=== PATIENT | male | born 1975 | race Caucasian/White ===

== ENCOUNTER 2021-07-10 10:10 | Emergency (ER) | payer OTHER ==
[~2021-07-10] VITALS: Ht 177.8 cm; Wt 92.5 kg
--- NOTE | 2021-07-10 16:43 | EKG ---
[facility] [address] [place], [place] [address] Signed Sinus bradycardia T wave abnormality, consider lateral ischemia Abnormal ECG No previous ECGs available Confirmed by JAGRUTI MORELAND MD ([id number]) on 07/10/2021 4:43:05 PM Electronically Signed By: JAGRUTI MORELAND MD 07/10/21 1643 PATIENT NAME: DAVID CARPENTER Electrocardiogram DATE OF : 71 PHYSICIAN: JAGRUTI MORELAND MD REPORT #: [id number] REPORT IS CONFIDENTIAL AND NOT TO BE RELEASED WITHOUT AUTHORIZATION
== END 2021-07-10 11:18 | disposition home or self-care (01) ==
LOC: ED 10:10
DX: K21.9 Gastro-esophageal reflux disease without esophagitis (principal)
CPT/HCPCS: 71045; 80053; 83735; 84484; 85025; 93005; 93010; 99285-25; U0003

== ENCOUNTER 2025-01-20 09:48 | Emergency (ER) | payer OTHER ==
[~2025-01-20] VITALS: Ht 177.8 cm; Wt 91.6 kg
[2025-01-20] MEDS ORDERED: hydrALAZINE HCL 20 MG/ML VIAL IV ONE (10:30)
[2025-01-20] MEDS ORDERED: hydrALAZINE HCL 10 MG TABLET PO ONE (10:45)
[2025-01-20 10:49] LABS: BASOPHILS 0.9 % (0-2); EOSINOPHILS 1.8 % (0-6); HEMOGLOBIN 15.6 g/dL (12.0-18.0); MCH 31.1 (27-36); MCHC 34.6 g/dl (30-36); MCV 89.9 fl (81-99); MONOCYTES 4.4 % (0-12); NEUTROPHILS 81.9 % (39-80); PLATELET COUNT 395 K/uL (140-440); RBC 5.01 M/ul (4.3-5.7); RDW 13.5 (10.5-15.0)
[2025-01-20 11:13] LABS: ALBUMIN 3.6 g/dL (3.4-5.0); ALBUMIN/GLOBULIN RATIO 0.78 (1.1-2.4); ANION GAP 12.9 (7-21); BILIRUBIN, TOTAL 0.3 mg/dL (0.2-1.0); BUN/CREATININE RATIO 14.41 (6.0-28.6); CREATININE, SERUM 1.11 mg/dL (0.70-1.30); POTASSIUM 3.9 mmol/L (3.5-5.1); PROTEIN, TOTAL 8.2 g/dL (6.4-8.2)
[2025-01-20] MEDS ORDERED: lisinopriL 20 MG TAB PO ONE (16:45)
[2025-01-20] MEDS ORDERED: LISINOPRIL10 MG PO (16:47)
[2025-01-20 17:06] LABS: CHOLESTEROL/HDL RATIO 3.8
[2025-01-20] MEDS ORDERED: lisinopriL 10 MG TAB PO ONE (17:45)
[2025-01-20 18:17] VITALS: BP 160/112
--- NOTE | 2025-01-22 12:55 | EKG ---
[facility] [address] [facility] [place], [place] [address] Signed Normal sinus rhythm Left axis deviation Abnormal ECG When compared with ECG of 10-JUL-2021 10:10, T wave inversion no longer evident in Lateral leads Confirmed by Lillian Raman DO ([id number]) on 01/22/2025 12:54:40 PM Electronically Signed By: LILLIAN RAMAN DO 01/22/25 1255 PATIENT NAME: DAVID CARPENTER Electrocardiogram DATE OF : 71 PHYSICIAN: LILLIAN RAMAN DO REPORT #: [id number] REPORT IS CONFIDENTIAL AND NOT TO BE RELEASED WITHOUT AUTHORIZATION
== END 2025-01-20 18:18 | disposition home or self-care (01) ==
LOC: ED 09:48
PROVIDERS: Emergency Medicine
DX: I10 Essential (primary) hypertension (principal); F15.10 Other stimulant abuse, uncomplicated; I69.328 Other speech and language deficits following cerebral infarction; K90.0 Celiac disease; E78.00 Pure hypercholesterolemia, unspecified; F17.200 Nicotine dependence, unspecified, uncomplicated; Z79.899 Other long term (current) drug therapy
CPT/HCPCS: 36415; 70450; 70553; 71045; 80053; 80061; 83036; 83880; 84484; 85025; 93005; 93010; 99284-25; A9577

== ENCOUNTER 2025-01-31 22:02 | Emergency (ER) | payer OTHER ==
[~2025-01-31] VITALS: Ht 177.8 cm; Wt 90.0 kg
[~2025-01-31 22:02] MED LIST: LISINOPRIL10 MG PO
--- OUTSIDE RECORDS SUMMARY | 2025-01-31 22:09 | XMS ---
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/Center: [facility] <UNAVAIL> PHONE: [phone] BURKE OLMEDO [facility] Current PHONE: Unknown Wes has no Care Guidelines for this patient. [place] VISIT COUNT (12 MO.) 2 [facility]MAINE Tejeda TOTAL 2 NOTE: Visits indicate total known visits. ED/UCC VISIT TRACKING (12 MO.) 01/31/2025 22:02 [facility] [place] TYPE: Emergency COMPLAINT: - HIGH BP 01/20/2025 09:[address] 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
[2025-01-31 23:54] VITALS: BP 154/99
--- NOTE | 2025-02-01 21:12 | EKG ---
[facility] [address] [facility] [place] [address] Signed Normal sinus rhythm Normal ECG When compared with ECG of 20-JAN-2025 11:40, No significant change was found Confirmed by Nitza Holden MD () on 02/01/2025 9:12:12 PM Electronically Signed By: NITZA HOLDEN MD 02/01/252111 PATIENT NAME: DAVID CARPENTER Electrocardiogram DATE OF : 71 PHYSICIAN: NITZA HOLDEN MD REPORT #: [id number] REPORT IS CONFIDENTIAL AND NOT TO BE RELEASED WITHOUT AUTHORIZATION
== END 2025-01-31 23:56 | disposition other institution, planned readmission (95) ==
LOC: ED 22:02
DX: Z02.89 Encounter for other administrative examinations (principal); I10 Essential (primary) hypertension; F17.200 Nicotine dependence, unspecified, uncomplicated; Z79.899 Other long term (current) drug therapy
CPT/HCPCS: 93005; 93010; 99283

== ENCOUNTER 2025-02-27 16:53 | Emergency (ER) | payer OTHER ==
[~2025-02-27] VITALS: Ht 177.8 cm; Wt 89.0 kg
--- OUTSIDE RECORDS SUMMARY | 2025-02-27 17:00 | XMS ---
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 E.Deejay VISIT COUNT (12 MO.) 3 CHARMAINE Tejeda TOTAL 3 NOTE: Visits indicate total known visits. 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
[2025-02-27] MEDS ORDERED: ZESTRIL40 MG PO (17:14)
[2025-02-27] MEDS ORDERED: REMERON15 M1 PO (17:15)
[2025-02-27] MEDS ORDERED: HYDROXYZINE HCL50 MG PO (17:15)
[2025-02-27] MEDS ORDERED: IBUPROFEN 600 MG TAB PO ONE (18:15)
[2025-02-27 18:38] LABS: BASOPHILS 0.7 % (0-2); HEMATOCRIT 40.2 % (35.0-50.0); HEMOGLOBIN 14.6 g/dL (12.0-18.0); LYMPHOCYTES 18.7 % (24-44); MCH 31.3 (27-36); MCHC 36.4 g/dl (30-36); MONOCYTES 7.3 % (0-12); NEUTROPHILS 70.3 % (39-80); PLATELET COUNT 340 K/uL (140-440); RBC 4.67 M/ul (4.3-5.7); RDW 13.2 (10.5-15.0)
[2025-02-27] MEDS ORDERED: ACETAMINOPHEN 500 MG TAB PO ONE (18:45)
[2025-02-27 18:57] LABS: ALBUMIN 3.2 g/dL (3.4-5.0); ALBUMIN/GLOBULIN RATIO 0.86 (1.1-2.4); BILIRUBIN, TOTAL 0.2 mg/dL (0.2-1.0); BUN/CREATININE RATIO 15.84 (6.0-28.6); CALCIUM 8.6 mg/dL (8.5-10.1); CREATININE, SERUM 1.01 mg/dL (0.70-1.30); PROTEIN, TOTAL 6.9 g/dL (6.4-8.2)
[2025-02-27] MEDS ORDERED: diphenhydrAMINE HCL 50 MG/ML VIAL IV ONE (19:15)
[2025-02-27] MEDS ORDERED: PROCHLORPERAZINE EDISYLATE 10 MG/2 ML VIAL IV ONE (19:15)
[2025-02-27] MEDS ORDERED: SODIUM CHLORIDE 0.9% 1,000 ML IV PRN (19:15)
[2025-02-27 20:15] VITALS: BP 162/121
--- NOTE | 2025-02-28 11:34 | EKG ---
[facility] [address] [facility] [place] [address] Signed Sinus bradycardia T wave abnormality, consider lateral ischemia Abnormal ECG When compared with ECG of 31-Jan-2025 23:42:13 T wave abnormality is now present Confirmed by Kamille Juarez MD ([id number]) on 02/28/2025 11:34:08 AM Electronically Signed By: KAMILLE JUAREZ MD 02/28/25 1134 PATIENT NAME: DAVID CARPENTER Electrocardiogram DATE OF : 71 PHYSICIAN: KAMILLE JUAREZ MD REPORT #: [id number] REPORT IS CONFIDENTIAL AND NOT TO BE RELEASED WITHOUT AUTHORIZATION
== END 2025-02-27 20:15 | disposition home or self-care (01) ==
LOC: ED 16:53
PROVIDERS: Emergency Medicine
DX: R51.9 Headache, unspecified (principal); I10 Essential (primary) hypertension; F17.200 Nicotine dependence, unspecified, uncomplicated; Z79.899 Other long term (current) drug therapy
CPT/HCPCS: 36415; 70450; 80053; 85025; 93005; 93010; 96374; 96375; 99284-25; A9270; J0780; J1200; J7030